=== PATIENT | male | born 1955 | race Caucasian/White ===

== ENCOUNTER 2019-04-08 07:22 | Outpatient (CLI) | payer OTHER | END 2019-04-08 08:00 | disposition home or self-care (01) | LOC: TOM 07:22 | DX: D37.4 Neoplasm of uncertain behavior of colon (principal); D12.7 Benign neoplasm of rectosigmoid junction; R19.4 Change in bowel habit ==

== ENCOUNTER 2019-04-16 09:45 | Inpatient (IN) | payer OTHER ==
[2019-04-16] MEDS ORDERED: PLAVIX75 MG (11:08)
[2019-04-16] MEDS ORDERED: CARDURA XL8 MG (11:08)
[2019-04-16] MEDS ORDERED: ADALAT CC30 MG (11:08)
[2019-04-16] MEDS ORDERED: CARVEDILOL12.5 MG (11:08)
[2019-04-16] MEDS ORDERED: LOSARTAN POTASS25 MG (11:09)
[2019-04-16] MEDS ORDERED: ALLOPURINOL100 MG (11:09)
[2019-04-16] MEDS ORDERED: ECOTRIN81 MG (11:09)
[2019-04-16] MEDS ORDERED: LIPITOR20 MG (11:09)
[2019-04-22] MEDS ORDERED: INTESTINEX680 M1 PO (08:53)
[2019-04-22] MEDS ORDERED: INTEGRA F CAPS1 EACH PO (08:53)
[2019-04-22] MEDS ORDERED: OXYC1TAB9 PO (08:53)
== END 2019-04-22 09:51 | disposition home or self-care (01) | DRG 330 ==
LOC: O/R 09:45 → SURH 04-18 06:21
PROVIDERS: ADMIT Surgery
PROC: 07TC4ZZ Resection of Pelvis Lymphatic, Percutaneous Endoscopic Approach (ICD-10-PCS; 2019-04-18)
PROC: 0DJD8ZZ Inspection of Lower Intestinal Tract, Via Natural or Artificial Opening Endoscopic (ICD-10-PCS; 2019-04-18)
PROC: 4A12X4Z Monitoring of Cardiac Electrical Activity, External Approach (ICD-10-PCS; 2019-04-18)
PROC: 0DTN4ZZ Resection of Sigmoid Colon, Percutaneous Endoscopic Approach (ICD-10-PCS; principal; 2019-04-18 10:45)
DX: C18.7 Malignant neoplasm of sigmoid colon (principal); C20 Malignant neoplasm of rectum; N18.4 Chronic kidney disease, stage 4 (severe); N17.8 Other acute kidney failure; E87.0 Hyperosmolality and hypernatremia; C77.2 Secondary and unspecified malignant neoplasm of intra-abdominal lymph nodes; E86.0 Dehydration; R59.0 Localized enlarged lymph nodes; I11.9 Hypertensive heart disease without heart failure; I25.10 Atherosclerotic heart disease of native coronary artery without angina pectoris; E66.09 Other obesity due to excess calories; E11.22 Type 2 diabetes mellitus with diabetic chronic kidney disease; G47.33 Obstructive sleep apnea (adult) (pediatric); I12.9 Hypertensive chronic kidney disease with stage 1 through stage 4 chronic kidney disease, or unspecified chronic kidney disease; D63.1 Anemia in chronic kidney disease; Z79.01 Long term (current) use of anticoagulants; Z79.4 Long term (current) use of insulin

== ENCOUNTER → 2020-02-04 | Day surgery (SDC) | payer OTHER ==
[~2020-02-04] MED LIST: ADALAT CC30 MG; ALLOPURINOL100 MG; CARDURA XL8 MG; CARVEDILOL12.5 MG; ECOTRIN81 MG; INTEGRA F CAPS1 EACH PO; INTESTINEX680 M1 PO; LIPITOR20 MG; LOSARTAN POTASS25 MG; OXYC1TAB9 PO; PLAVIX75 MG
== END | disposition home or self-care (01) ==
LOC: ADM 01-29 12:15 → AMB-ENDOS 10:19
PROVIDERS: ATTEND Surgery
DX: D12.4 Benign neoplasm of descending colon (principal); K64.8 Other hemorrhoids; Z20.828 Contact with and (suspected) exposure to other viral communicable diseases